=== PATIENT | female | born 1980 | race Caucasian/White ===

== ENCOUNTER 2020-12-05 18:20 | Emergency (ER) | payer OTHER ==
[~2020-12-05] VITALS: Ht 149.9 cm; Wt 59.0 kg
== END 2020-12-05 20:55 | disposition home or self-care (01) ==
LOC: ED 18:20
DX: S61.214A Laceration without foreign body of right ring finger without damage to nail, initial encounter (principal); W26.8XXA Contact with other sharp object(s), not elsewhere classified, initial encounter; F17.200 Nicotine dependence, unspecified, uncomplicated
CPT/HCPCS: 12001; 99282-25